=== PATIENT | male | born 1970 | race Caucasian/White ===

== ENCOUNTER 2025-10-11 09:28 | Day surgery (SDC) | payer BC, SELFPAY ==
[2025-10-11 09:51] VITALS: BMI 22.7
== END 2025-10-11 11:30 | disposition home or self-care (01) ==
LOC: CATH 09:28
PROVIDERS: ATTENDING PHYSICIAN Internal Medicine Cardiovascular Disease; FAMILY PHYSICIAN Family Medicine; OTHER PHYSICIAN Internal Medicine Cardiovascular Disease
DX: I08.1 Rheumatic disorders of both mitral and tricuspid valves (principal); Z79.899 Other long term (current) drug therapy; I34.1 Nonrheumatic mitral (valve) prolapse
CPT/HCPCS: 93312; 93320; 93325

== ENCOUNTER 2025-10-12 06:10 | Day surgery (SDC) | payer BC, SELFPAY ==
[2025-10-12] VITALS (13 sets, daily range): BP systolic 109–143; BP diastolic 61–93; BMI 22.5
[2025-10-12] MEDS: LOW STRENGTH ASPIRIN 324 MG PO (07:18)
--- NOTE | 2025-10-12 07:36 | ITS.CL.CATH ---
[employer] - Catheterization
Cardiac Catheterization
Procedure Report:
LEFT HEART CATHETERIZATION
Date of Procedure: October 12, 2025
Procedures performed:
1: Coronary angiography
2: Left ventricular hemodynamic assessment
Primary Care Physician: Dr. Apolinar Aguila
Primary Fashion Photographer: Dr. Ra Correa
INDICATION: The patient is a 55-year-old man with myxomatous mitral valve disease with regurgitation is presenting with increasing symptoms and is referred for coronary angiography in preparation for planned mitral valve repair.
ACCESS: The patient was prepped and draped in usual sterile fashion. A 6 [place] sheath was placed in the right radial artery using the Seldinger over the wire technique.
HEMODYNAMIC FINDINGS (mmHg):
LV(s/d,EDP): 126/14, 26
Ao(s/d,m): 126/87, 110
ANGIOGRAPHIC FINDINGS:
Single-plane Left Ventriculography in CANAS Projection: Not done. LIBBY performed yesterday reviewed in detail. Normal LV function.
Coronary Angiography:
Dominance: Right
Left Main: Normal
Left Anterior Descending: The left anterior descending artery is a large-caliber vessel that gives rise to 2 major diagonal branches. These vessels are angiographically normal with normal flow in all distal vessels.
Left Circumflex: The left circumflex is a medium caliber nondominant vessel that gives rise to 1 major bifurcating obtuse marginal branch that is angiographically normal.
Ramus Intermedius: Small to medium caliber ramus intermedius branch present which is widely patent.
Right Coronary: The right coronary artery is a large-caliber dominant vessel that gives rise to a medium caliber posterior descending artery and posterior left ventricular branch system. There is very mild luminal irregularities in the mid RCA but
no focal obstructive disease with normal flow in all distal vessels.
Fluoroscopy Time (min): 1.9
Radiation Dose (mGy): 198
DAP (Gy.cm2): 9.1
Closure device: None. A TR band was applied for hemostasis at the right wrist.
Complications: None.
ASSESSMENT:
1: Very mild nonobstructive coronary artery disease.
2: Elevated left ventricular filling pressures in the setting of known severe MR.
CONCLUSIONS and RECOMMENDATIONS:
1: Proceed with planned mitral valve repair surgery.
2: Clinical follow-up as planned with Drs. Correa and Ayla.
Lali Wills M.D.
== END 2025-10-12 11:15 | disposition home or self-care (01) ==
LOC: CATH 06:10
PROVIDERS: ATTENDING PHYSICIAN Internal Medicine Cardiovascular Disease; FAMILY PHYSICIAN Family Medicine
DX: I34.0 Nonrheumatic mitral (valve) insufficiency (principal); I25.10 Atherosclerotic heart disease of native coronary artery without angina pectoris; D15.1 Benign neoplasm of heart; Z79.899 Other long term (current) drug therapy
CPT/HCPCS: 93005; 93458; C1769; Q9967

== ENCOUNTER → 2025-10-24 15:17 | Outpatient (REF) | payer BC, SELFPAY | LOC: RAD 15:17 | PROVIDERS: ATTENDING PHYSICIAN Thoracic Surgery (Cardiothoracic Vascular Surgery); FAMILY PHYSICIAN Family Medicine | DX: I34.0 Nonrheumatic mitral (valve) insufficiency (principal) | CPT/HCPCS: 71275; 74174; Q9967 ==